=== PATIENT | female | born 1950 | race Caucasian/White ===

== ENCOUNTER 2017-09-18 06:04 | Day surgery (SDC) | payer MEDICARE ==
[~2017-09-18] VITALS: Ht 170.2 cm; Wt 57.0 kg
[~2017-09-18 06:04] MED LIST: Bactrim 400-801 EACH PO; CALCIUM + VIT1 EACH PO; ENOX40I SC; FLAX SEED OIL1 EACH PO; HYDMOR2; LISINOPRIL PO; LOVA40; NAPR375 PO; NAPR500 PO; OXYACE5T PO; ROXICODONE5 MG PO; SIMV10 PO; VITAMIN B PO; VITAMIN D3 PO
== END 2017-09-18 11:41 | disposition home or self-care (01) ==
LOC: ORSCSDS 06:04
PROVIDERS: Orthopaedic Surgery
PROC: 0LQ14ZZ Repair Right Shoulder Tendon, Percutaneous Endoscopic Approach (ICD-10-PCS; principal; 2017-09-18 07:30)
DX: M75.121 Complete rotator cuff tear or rupture of right shoulder, not specified as traumatic (principal); I10 Essential (primary) hypertension; Z79.899 Other long term (current) drug therapy
CPT/HCPCS: C1713; J0690; J1100; J1885; J2250; J2405; J2710; J3010; J7120

== ENCOUNTER → 2020-10-06 | Outpatient (CLI) | payer MEDICARE | LOC: LAB SHORT 12:48 → LAB 12:48 → LAB EV 12:48 | DX: N39.0 Urinary tract infection, site not specified (principal) | CPT/HCPCS: 87086 ==

== ENCOUNTER 2024-04-20 14:59 | Emergency (ER) | payer MEDICARE ==
[~2024-04-20] VITALS: Ht 170.2 cm; Wt 49.9 kg
[2024-04-20 15:42] LABS: BASOPHILS ABSOLUTE AUTO 0.06 K/mm3 (0.00-0.23); BASOPHILS PERCENT AUTO 1 % (0-2); EOSINOPHILS ABSOLUTE AUTO 0.21 K/mm3 (0.00-0.68); EOSINOPHILS PERCENT AUTO 3 % (0-6); Hematocrit 40.4 % (33.0-51.0); Hemoglobin 13.3 g/dL (11.5-16.0); IMMATURE GRAN ABSOLUTE AUTO 0.02 K/mm3 (0.00-0.10); IMMATURE GRAN PERCENT AUTO 0 % (0-1); LYMPHOCYTES ABSOLUTE AUTO 1.82 K/mm3 (0.84-5.20); LYMPHOCYTES PERCENT AUTO 22 % (21-46); MONOCYTES ABSOLUTE AUTO 0.62 K/mm3 (0.16-1.47); MONOCYTES PERCENT AUTO 7 % (4-13); Mean Corpuscular HGB 31.2 pg (26.0-34.0); Mean Corpuscular HGB Conc 32.9 g/dL (31.5-36.5); Mean Corpuscular Volume 95 fL (80-100); Mean Platelet Volume 9.6 fL (9.1-12.4); NEUTROPHILS ABSOLUTE AUTO 5.66 K/mm3 (1.96-9.15); NEUTROPHILS PERCENT AUTO 68 % (41-73); Platelet Count 171 K/mm3 (150-400); RDW Coefficient Variation 12.6 % (11.7-14.2); RDW Standard Deviation 43.8 fL (35.1-46.3); Red Blood Cell Count 4.26 M/mm3 (3.80-5.20); White Blood Cell Count 8.39 K/mm3 (4.00-11.30)
[2024-04-20 16:01] LABS: Albumin, Blood 3.8 g/dL (3.4-5.0); Albumin/Globulin Ratio 1.4 (0.8-1.8); Bilirubin, Total 0.8 mg/dL (0.1-1.0); Bun/Creatinine Ratio 22.4 (12.0-20.0); Creatinine, Blood 0.71 mg/dL (0.40-1.00); Globulin, Blood 2.8 g/dL (2.2-4.0); Potassium, Blood 4.2 mmol/L (3.5-5.5); Total Protein, Blood 6.6 g/dL (6.4-8.2)
[2024-04-20 16:04] LABS: International Normalized Ratio 0.98; Prothrombin Time Results 10.5 Sec (9.7-11.5)
[2024-04-20] MEDS ORDERED: Ketorolac Tromethamine 15mg Vial IV ONE (16:30)
[2024-04-20] MEDS ORDERED: FentaNYL Citrate 50 MCG/ML 2 ML Injection IV ONE (16:30)
[2024-04-20] MEDS ORDERED: Prochlorperazine Edisylate 10 mg Vial IV ONE (17:10)
[2024-04-20] MEDS ORDERED: RX Prepack 2 Tabs Ondansetron ODT 4MG UD ONE (17:25)
[2024-04-20] MEDS ORDERED: RX Prepack 6 Tabs Oxycodone 5mg UD ONE (17:25)
[2024-04-20] MEDS ORDERED: ONDA4ODT MM (17:27)
[2024-04-20] MEDS ORDERED: Percocet 5-3251 EACH PO (17:27)
[2024-04-20 17:30] VITALS: BP 108/61
== END 2024-04-20 17:50 | disposition home or self-care (01) ==
LOC: ER 14:59
PROVIDERS: Emergency Medicine
DX: S72.142A Displaced intertrochanteric fracture of left femur, initial encounter for closed fracture (principal); M97.02XA Periprosthetic fracture around internal prosthetic left hip joint, initial encounter; I10 Essential (primary) hypertension; W20.8XXA Other cause of strike by thrown, projected or falling object, initial encounter; Z79.899 Other long term (current) drug therapy
CPT/HCPCS: 72192; 80053; 85025; 85610; 85730; 96374; 96375; 99284-25; A9270; J0780; J1885; J3010

== ENCOUNTER 2024-04-25 08:25 | Day surgery (SDC) | payer MEDICARE ==
[~2024-04-25] VITALS: Ht 170.2 cm; Wt 51.8 kg
[~2024-04-25 08:25] MED LIST changes: +Balanced Salt Epinephrine Irrigation Solution 500 mL IR SCH; +Lidocaine HCl/Pf 1% 5 ML VIAL XX SCH; +Moxifloxacin HCL 0.5 MG/0.1 ML 0.4MLSYR LEFTEYE SCH; +ONDA4ODT MM; +PHENYLEPHRINE\\TROPICAMIDE\\TETRACAINE OPHTHALMIC DILATING SOLN LEFTEYE PRN; +Percocet 5-3251 EACH PO; +Povidone-Iodine 450 DROP/30 ML Solution LEFTEYE SCH; +Triamcinolone Inj Susp 40 MG / ML 1ML Vial INJ SCH; +Triamcinolone Inj Susp 40 MG / ML 1ML Vial ONE
[2024-04-25] MEDS ORDERED: Midazolam HCl 1MG / ML 2ML Vial ONE (09:24)
[2024-04-25] MEDS ORDERED: Tetracaine HCl 0.5% Opth Soln 15 ml XX ONE (09:55)
[2024-04-25 10:24] VITALS: BP 112/67
== END 2024-04-25 10:45 | disposition home or self-care (01) ==
LOC: ORSCSDS 08:25
PROVIDERS: Ophthalmology
PROC: 08RK3JZ Replacement of Left Lens with Synthetic Substitute, Percutaneous Approach (ICD-10-PCS; principal; 2024-04-25 10:00)
PROC: 08933ZZ Drainage of Left Anterior Chamber, Percutaneous Approach (ICD-10-PCS; principal; 2024-04-25 10:00)
DX: H25.813 Combined forms of age-related cataract, bilateral (principal); H40.143 Capsular glaucoma with pseudoexfoliation of lens, bilateral; H04.123 Dry eye syndrome of bilateral lacrimal glands; I10 Essential (primary) hypertension; Z79.899 Other long term (current) drug therapy
CPT/HCPCS: J2250; J3301; V2632

== ENCOUNTER 2024-05-02 08:03 | Day surgery (SDC) | payer MEDICARE ==
[~2024-05-02] VITALS: Ht 170.2 cm; Wt 53.6 kg
[~2024-05-02 08:03] MED LIST changes: -Moxifloxacin HCL 0.5 MG/0.1 ML 0.4MLSYR LEFTEYE SCH; +Moxifloxacin HCL 0.5 MG/0.1 ML 0.4MLSYR RIGHTEYE SCH; -PHENYLEPHRINE\\TROPICAMIDE\\TETRACAINE OPHTHALMIC DILATING SOLN LEFTEYE PRN; +PHENYLEPHRINE\\TROPICAMIDE\\TETRACAINE OPHTHALMIC DILATING SOLN RIGHTEYE PRN; -Povidone-Iodine 450 DROP/30 ML Solution LEFTEYE SCH; +Povidone-Iodine 450 DROP/30 ML Solution ONE; +Povidone-Iodine 450 DROP/30 ML Solution RIGHTEYE SCH; +Tetracaine HCl/Pf 0.5% Opth Soln 4 ml ONE
[2024-05-02] MEDS ORDERED: Diazepam 2 MG Tab ONE (09:20)
[2024-05-02 10:19] VITALS: BP 151/66
--- NOTE | 2024-05-02 10:20 | NUR ---
05/02/[address] IN SPEAKING WITH PT ABOUT HER SURGERY
== END 2024-05-02 10:30 | disposition home or self-care (01) ==
LOC: ORSCSDS 08:03
DX: H25.811 Combined forms of age-related cataract, right eye (principal); Z96.1 Presence of intraocular lens; I10 Essential (primary) hypertension; Z79.899 Other long term (current) drug therapy
CPT/HCPCS: A9270; J3301; V2632